=== PATIENT | female | born 1945 | race Caucasian/White ===

== ENCOUNTER → 2018-09-19 | Outpatient (CLI) | payer MEDICARE, BC ==
[~2018-09-19] MED LIST: AMBIEN 5MG TABLE5 MG PO; ASPIRIN 81M81 MG/TA2 PO; AZILECT1 MG PO; CEPHALEXIN500 M1 PO; FLEXERIL5 MG PO; FLOVENT 110MCG7.9 GM IH; LYRICA 150MG C150 MG PO; LYRICA200 MG PO; NEURONTIN300 MG/CAP PO; NORCO 325 MG-51 TAB PO; PERCOCET 325 MG1 TA2 PO; PROAIR HFA0.09 MG/AC IH; RT ADVAIR 528 DISKUS IH; SINEMET 25/101 UDTAB PO; SINEMET CR1 UDTAB.S1 PO; SYNTHROID0.075 MG/T PO; VENTOLIN0.09 MG IH
== END ==
LOC: COL.RAD 08:07
DX: R14.0 Abdominal distension (gaseous) (principal); R19.00 Intra-abdominal and pelvic swelling, mass and lump, unspecified site; R39.198 Other difficulties with micturition
CPT/HCPCS: Q9967

== ENCOUNTER 2018-12-17 15:26 | Outpatient (CLI) | payer MEDICARE, BC ==
[~2018-12-17] VITALS: Ht 170.2 cm; Wt 72.0 kg
[2018-12-17 15:46] VITALS: BP 121/66; PULSE 58; TEMP 98.7
[2018-12-17] MEDS ORDERED: RYTARY1 CE2 PO (15:48)
[2018-12-17] MEDS ORDERED: CELEXA10 MG PO (15:52)
[2018-12-17] MEDS ORDERED: PROLIA60 MG/ML SQ (15:53)
== END 2018-12-17 16:27 | disposition home or self-care (01) ==
LOC: EUO 15:26
DX: M81.0 Age-related osteoporosis without current pathological fracture (principal)
CPT/HCPCS: J0897

== ENCOUNTER 2019-06-17 10:42 | Outpatient (CLI) | payer MEDICARE, BC ==
[~2019-06-17] VITALS: Ht 170.2 cm; Wt 73.5 kg
[~2019-06-17 10:42] MED LIST changes: +CELEXA10 MG PO; +PROLIA60 MG/ML SQ; +RYTARY1 CE2 PO
[2019-06-17] MEDS ORDERED: B-12 500 MCG PO (11:02)
[2019-06-17 11:09] VITALS: BP 131/55; PULSE 56; TEMP 98.5
== END 2019-06-17 11:49 | disposition home or self-care (01) ==
LOC: EUO 10:42
DX: M81.0 Age-related osteoporosis without current pathological fracture (principal); M80.80XA Other osteoporosis with current pathological fracture, unspecified site, initial encounter for fracture
CPT/HCPCS: J0897

== ENCOUNTER → 2019-07-10 | Outpatient (CLI) | payer MEDICARE, BC ==
[~2019-07-10] MED LIST changes: +B-12 500 MCG PO
== END ==
LOC: MC.RAD 10:16
DX: Z00.00 Encounter for general adult medical examination without abnormal findings (principal); Z12.31 Encounter for screening mammogram for malignant neoplasm of breast

== ENCOUNTER 2020-02-05 14:33 | Outpatient (CLI) | payer MEDICARE, BC ==
[~2020-02-05] VITALS: Ht 170.2 cm; Wt 74.8 kg
[2020-02-05] MEDS ORDERED: REQUIP0.25 MG PO (14:53)
[2020-02-05] MEDS ORDERED: MELATONIN5 M1 PO (14:54)
[2020-02-05] MEDS ORDERED: SINEMET 25/101 UDTAB PO ×2 (14:55)
[2020-02-05 15:00] VITALS: BP 131/72; PULSE 82; TEMP 98
== END 2020-02-05 15:16 | disposition home or self-care (01) ==
LOC: EUO 14:33
DX: M80.80XA Other osteoporosis with current pathological fracture, unspecified site, initial encounter for fracture (principal)
CPT/HCPCS: J0897

== ENCOUNTER 2021-02-10 14:49 | Outpatient (CLI) | payer MEDICARE, BC ==
[~2021-02-10] VITALS: Ht 170.2 cm; Wt 77.2 kg
[~2021-02-10 14:49] MED LIST changes: +MELATONIN5 M1 PO; +REQUIP0.25 MG PO
[2021-02-10 15:18] VITALS: BP 118/58; PULSE 65; TEMP 98.4
== END 2021-02-10 15:18 | disposition home or self-care (01) ==
LOC: EUO 14:49
DX: M80.80XA Other osteoporosis with current pathological fracture, unspecified site, initial encounter for fracture (principal)
CPT/HCPCS: J0897

== ENCOUNTER 2021-08-22 14:55 | Outpatient (CLI) | payer MEDICARE, BC ==
[~2021-08-22] VITALS: Ht 170.2 cm; Wt 74.7 kg
[2021-08-22 15:40] VITALS: BP 123/71; PULSE 69; TEMP 98
== END 2021-08-22 15:41 ==
LOC: EUO 14:55
DX: M80.80XA Other osteoporosis with current pathological fracture, unspecified site, initial encounter for fracture (principal)
CPT/HCPCS: J0897

== ENCOUNTER → 2021-10-05 | Outpatient (CLI) | payer MEDICARE, BC ==
[~2021-10-05] VITALS: Ht 170.2 cm; Wt 73.5 kg
[2021-10-05 13:08] VITALS: BP 133/84; PULSE 64; TEMP 97.5
[2021-10-05 14:25] VITALS: BP 144/82; PULSE 63
== END ==
LOC: COL.RAD 12:45
DX: M51.16 Intervertebral disc disorders with radiculopathy, lumbar region (principal); M48.061 Spinal stenosis, lumbar region without neurogenic claudication
CPT/HCPCS: J3301

== ENCOUNTER 2022-03-01 09:38 | Outpatient (CLI) | payer MEDICARE, BC ==
[~2022-03-01] VITALS: Ht 170.2 cm; Wt 70.7 kg
[2022-03-01 10:18] VITALS: PULSE 85; TEMP 97.3
== END 2022-03-01 20:48 | disposition home or self-care (01) ==
LOC: EUO 09:38
DX: M80.80XA Other osteoporosis with current pathological fracture, unspecified site, initial encounter for fracture (principal)
CPT/HCPCS: J0897

== ENCOUNTER → 2022-10-08 | Outpatient (CLI) | payer MEDICARE, BC ==
[~2022-10-08] VITALS: Ht 170.2 cm; Wt 72.3 kg
[2022-10-08 13:12] VITALS: BP 114/72; PULSE 66; TEMP 97.8
[2022-10-08 15:12] VITALS: BP 134/78; PULSE 68
== END ==
LOC: COL.RAD 12:29
DX: M51.26 Other intervertebral disc displacement, lumbar region (principal); M48.062 Spinal stenosis, lumbar region with neurogenic claudication
CPT/HCPCS: J3301

== ENCOUNTER 2023-01-18 10:42 | Outpatient (CLI) | payer MEDICARE, BC ==
[~2023-01-18] VITALS: Ht 170.2 cm; Wt 69.7 kg
[2023-01-18 11:12] VITALS: BP 137/75; PULSE 57; TEMP 97.6
== END 2023-01-18 11:23 | disposition home or self-care (01) ==
LOC: EUO 10:42
DX: M81.0 Age-related osteoporosis without current pathological fracture (principal)
CPT/HCPCS: J0897

== ENCOUNTER 2023-09-09 09:28 | Emergency (ER) | payer MEDICARE, BC ==
[~2023-09-09] VITALS: Ht 165.1 cm; Wt 59.1 kg
[~2023-09-09 09:28] MED LIST changes: +FLEXERIL 1010 MG/TAB PO; +LEXAPRO 10MG10 MG PO; +MITIGARE0.6 MG PO; +ULTRAM 50MG TAB50 MG PO; +VITAMIN D31000 I1 PO
[2023-09-09 09:35] VITALS: TEMP 97.7
[2023-09-09] MEDS ORDERED: PERCOCET 325 MG1 TA2 PO (12:13)
[2023-09-09] MEDS ORDERED: WALKER MC (12:20)
[2023-09-09 12:30] VITALS: BP 124/50; PULSE 58
[2023-09-09] MEDS ORDERED: oxyCODONE/Acetaminophen 5-325 MG TAB PO ONE (12:30)
== END 2023-09-09 12:41 | disposition home or self-care (01) ==
LOC: COL.ER 09:28
DX: M25.551 Pain in right hip (principal); G20.A1 Parkinson's disease without dyskinesia, without mention of fluctuations; W01.0XXA Fall on same level from slipping, tripping and stumbling without subsequent striking against object, initial encounter; Y92.002 Bathroom of unspecified non-institutional (private) residence as the place of occurrence of the external cause

== ENCOUNTER 2024-04-10 14:34 | Outpatient (CLI) | payer MEDICARE, BC ==
[~2024-04-10] VITALS: Ht 165.1 cm; Wt 62.4 kg
[2024-04-10 14:15] VITALS: BP 123/55; PULSE 53; TEMP 97.3
[~2024-04-10 14:34] MED LIST changes: +LIORESAL 1010 MG/TAB PO; +Romosozumab-aqqg 210 MG/2.34 ML 2-Syringe KIT SQ ONE; +WALKER MC
== END 2024-04-10 14:40 | disposition home or self-care (01) ==
LOC: EUO 14:34
DX: M81.0 Age-related osteoporosis without current pathological fracture (principal)
CPT/HCPCS: J3111

== ENCOUNTER 2024-05-08 13:29 | Outpatient (RCR) | payer MEDICARE, BC ==
[~2024-05-08] VITALS: Ht 165.1 cm; Wt 74.2 kg
[~2024-05-08 13:29] MED LIST changes: -Romosozumab-aqqg 210 MG/2.34 ML 2-Syringe KIT SQ ONE
[2024-05-08] MEDS ORDERED: Romosozumab-aqqg 210 MG/2.34 ML 2-Syringe KIT SQ ONE (13:45)
[2024-05-08 13:58] VITALS: BP 93/45; PULSE 63; TEMP 97.4
[2024-05-08] MEDS ORDERED: ATIVAN 0.50.5 MG/TAB PO (14:18)
== END 2024-05-08 14:24 ==
LOC: EUO 13:29
DX: M81.0 Age-related osteoporosis without current pathological fracture (principal)
CPT/HCPCS: J3111

== ENCOUNTER 2024-06-05 13:52 | Outpatient (CLI) | payer MEDICARE, BC ==
[~2024-06-05] VITALS: Ht 165.1 cm; Wt 65.5 kg
[~2024-06-05 13:52] MED LIST changes: +ATIVAN 0.50.5 MG/TAB PO
[2024-06-05] MEDS ORDERED: Romosozumab-aqqg 210 MG/2.34 ML 2-Syringe KIT SQ ONE (14:15)
[2024-06-05 14:18] VITALS: BP 123/67; PULSE 59; TEMP 97.9
[2024-06-05] MEDS ORDERED: EVENITY (2210 MG/2.3 SQ (14:24)
--- NOTE | 2024-06-05 14:30 | NUR ---
Pt tolerated evenity injections without issue. She is assisted to waiting room by wheelchair to meet family for ride home. She is free of complaints at discharge.
== END 2024-06-05 14:30 | disposition home or self-care (01) ==
LOC: EUO 13:52
DX: M81.0 Age-related osteoporosis without current pathological fracture (principal)
CPT/HCPCS: J3111